=== PATIENT | female | born 1990 | race African-American/Black ===

== ENCOUNTER → 2019-11-23 10:20 | Outpatient (REF) | payer MEDICAID, SELFPAY ==
--- NOTE | 2019-11-23 10:48 | ECG_ITS ---
Test Reason : OTHER CHEST PAIN Blood Pressure : / mmHG Vent. Rate : 072 BPM Atrial Rate : 072 BPM P-R Int : 154 ms QRS Dur : 092 ms QT Int : 410 ms P-R-T Axes : 026 033 037 degrees QTc Int : 448 ms Normal sinus rhythm with sinus arrhythmia Normal ECG No previous ECGs available Referred By: Nenita Trejo Electronically Signed By:SHIMON JACKSON
== END ==
LOC: HO.CARD 10:20
PROVIDERS: PCP Internal Medicine; Visit Provider Internal Medicine
DX: R07.89 Other chest pain (principal)
CPT/HCPCS: 93005; 93010

== ENCOUNTER 2019-12-13 09:26 | Outpatient (REF) | payer MEDICAID, SELFPAY ==
--- NOTE | 2019-12-13 09:31 | FL_ITS ---
EXAMINATION: BARIUM SWALLOW CLINICAL INFORMATION: Dysphagia. COMPARISON: None TECHNIQUE: Routine barium swallow was performed in upright view with thick barium and barium-coated turkey. Patient was placed prone lying and thin barium was administered orally. FINDINGS: Following oral administration of thick barium and barium-coated turkey, there is normal propagation of bolus from the oral cavity through the pharynx, esophagus into stomach without any evidence of obstruction, narrowing or stricture. No intraluminal filling defect or narrowing seen. On placing patient prone lying and oral administration of thin barium, there is normal distention of the entire esophagus without filling defect or extrinsic compression. There is a large gastroesophageal reflux without hiatal hernia. IMPRESSION: Large gastroesophageal reflux without hiatal hernia. Fluoroscopy time: 1.6 minutes. Dose area product: 147 mGy
== END 2019-12-13 09:27 | disposition home or self-care (01) ==
LOC: HO.XRAY 09:26
PROVIDERS: PCP Internal Medicine; Visit Provider Internal Medicine
DX: R13.10 Dysphagia, unspecified (principal)
CPT/HCPCS: 74220

== ENCOUNTER 2020-01-11 08:53 | Day surgery (SDC) | payer MEDICAID, SELFPAY ==
--- NOTE | 2020-01-10 10:48 | HO.ANESPROP2 ---
HPI - Anesthesia Eval Consult details Narrative: 29yo F for Colonoscopy PMFSH Past Medical History Medical History Headache Iron deficiency anemia Vitamin D deficiency Family History Family History (Updated 12/21/19 @ 14:20 by Edwige Howard) Maternal Grandmother Throat cancer Mother Colon cancer Maternal Aunt Diabetes Social History Social History Alcohol intake: never Smoking Status: Never smoker Use of substances other than those prescribed or required for medical reasons: No Advance Directives: No Advance Directives Information Provided: No Meds Allergies Allergy/AdvReac Type Severity Reaction Status Date / Time No Known Allergies Allergy Verified 12/21/19 14:38 Home Medications Medication Instructions Recorded Confirmed Type ascorbic acid (vitamin C) [Vitamin 500 mg PO BID 12/21/19 01/08/20 History C] docusate sodium 50 mg PO BID 12/21/19 12/21/19 History ergocalciferol (vitamin D2) 25,000 unit PO DAILY 12/21/19 12/21/19 History ferrous sulfate 325 mg PO DAILY 12/21/19 01/08/20 History Exam Exam Date and Time: January 10, 2020 1048 Pertinent Lab Results Pertinent Lab Results: Laboratory Tests 12/21/19 12/21/19 14:47 14:47 WBC 7.1 Hgb 10.7 L Hct 34.7 L Plt Count 286 Sodium 136 Potassium 3.8 Chloride 102 Carbon Dioxide 24 BUN 6 L Creatinine 0.72 Assessment and Plan Assessment Anesthesia Assessment: Chart Reviewed
[2020-01-11 09:05] VITALS: BP 137/76; PULSE 98; RESP 16; TEMP 36.1; O2SAT 100
[2020-01-11 09:08] VITALS: BMI 32.3
--- NOTE | 2020-01-11 09:26 | PC.NURSE ---
ehs manager used. urine sent to lab
[2020-01-11 09:32] LABS: UPreg QC Valid YES; Urine Pregnancy NEGATIVE (NEGATIVE)
[2020-01-11] MEDS: Lactated Ringers 1,000 ML 100 ML IVCONT (09:34)
--- NOTE | 2020-01-11 09:44 | MHC.SHP ---
Pre-Procedural Eval Section B Chief Complaint: Screening Details of Present Illness: Colon cancer Screening--Mother dx colon cancer @ age 25 @ 30 Relevant Family History (Specify if Yes): Yes Relevant Social History: None Present Medications: see Short Stay Collaborative assessment Medical History: Significant History (Iron deficiency anemia, Obesity(32.3)) History of Previous Operations: No relevant previous surgery Allergies: Allergies Allergy/AdvReac Type Severity Reaction Status Date / Time No Known Allergies Allergy Verified 12/21/19 14:38 Review of Systems Sugical H&P ROS: Negative: Constitution, Cardiovascular, Respiratory and Gastrointestinal (denies dysphagia, etc .) Exam Surgical H&P Exam: Normal: HEENT, Normal: Heart, Normal: Lungs and Normal: Extremities and Significant Findings: Abdomen (central obesity) Plan Diagnosis/Plan: Unchanged Patient has been examined and remains a candidate for the planned procedure-yes
--- NOTE | 2020-01-11 10:22 | PM.PROC ---
Brief Operative Note Date of procedure: 01/11/20 Pre-op diagnosis: COLON CANCER SCREENING(MOTHER DX W/ CC AGE 25) Post-op diagnosis: other Procedure: NORMAL EXAM Anesthesia: MAC (MD SINGH) Surgeon: Simona Alexander Estimated blood loss (mL): 0 Pathology: none sent Condition: stable Disposition: PACU
[2020-01-11 10:23] VITALS: BP 92/54; PULSE 72; RESP 18; TEMP 36.1; O2SAT 97
[2020-01-11 10:38] VITALS: BP 104/72; PULSE 68; RESP 18; O2SAT 100
--- NOTE | 2020-01-11 11:08 | HO.POSTANES ---
Post Anesthesia Evaluation Post Anesthesia Evaluation Vital Signs: Vital Signs Temp Pulse Resp BP Pulse Ox 01/11/20 10:38 97 F 68 18 104/72 100 01/11/20 10:23 97 F 72 18 92/54 L 97 01/11/20 09:05 97.0 F 98 16 137/76 100 Anesthesia: Monitored Mental Status: Awake Pain Control: Satisfactory Nausea/Vomiting: None Hydration: Adequate Anesthesia-Related Issues: No Anes. Related Issues
--- NOTE | 2020-01-11 12:21 | OP_ITS ---
SURGEON: Simona Alexander MD PREOPERATIVE DIAGNOSIS: Colon Cancer Screening:Mother Dx Colon Cancer-age 25; @age 30 POSTOPERATIVE DIAGNOSIS: Normal exam. PROCEDURE PERFORMED: Colonoscopy. ESTIMATED BLOOD LOSS: No blood loss. COMPLICATIONS: No complications. ANESTHESIA: Monitored ANESTHESIOLOGIST: Zaid Maki MD ASSISTANTS: No cafe assistant. SPECIMENS: No specimens removed. CONDITION: Postop, stable. FINDINGS: Digital rectal exam revealed sphincter tone to be adequate. Video colonoscope was introduced without difficulty. It was navigated into the rectosigmoid and sigmoid. There was mild redundancy in this region. Scope slowly moved through descending, transverse colon to the hepatic flexure. There was minor looping in this region. Gentle extrinsic abdominal pressure facilitated movement through ascending colon, down into the cecum. Appendiceal orifice was seen. Ileocecal valve was well seen. No mucosal abnormalities were appreciated. Prep was excellent. Slow withdrawal of the scope, good rotational views. No lesions were seen. Anorectal verge was clear. CURRENT RECOMMENDATIONS: Repeat asymptomatic screening in a patient with a high-risk family history continues to be 5 years. GRAFT OR IMPLANTS: No grafts or implants. Simona Alexander MD MEN/MODL / [id number] MTDD
== END 2020-01-11 11:09 | disposition home or self-care (01) ==
PROVIDERS: PCP Internal Medicine; Visit Provider Internal Medicine Gastroenterology
PROC: 0DJD8ZZ Inspection of Lower Intestinal Tract, Via Natural or Artificial Opening Endoscopic (ICD-10-PCS; CPT 45378; principal; 2020-01-11 10:30)
DX: Z12.11 Encounter for screening for malignant neoplasm of colon (principal); D50.9 Iron deficiency anemia, unspecified; E55.9 Vitamin D deficiency, unspecified; R51.9 Headache, unspecified; Z79.899 Other long term (current) drug therapy
CPT/HCPCS: 45378; 81025

== ENCOUNTER → 2020-02-08 08:32 | Outpatient (BNVA) | payer MEDICAID, SELFPAY | PROVIDERS: PCP Internal Medicine; Visit Provider Nurse Practitioner | DX: Z76.89 Persons encountering health services in other specified circumstances (principal) ==

== ENCOUNTER 2020-03-12 12:02 | Outpatient (REF) | payer MEDICAID, SELFPAY | END 2020-03-12 12:03 | disposition home or self-care (01) | LOC: HO.LAB 12:02 | PROVIDERS: Visit Provider Internal Medicine | DX: Z20.822 Contact with and (suspected) exposure to COVID-19 (principal) | CPT/HCPCS: 36415; C9803; U0003 ==

== ENCOUNTER 2020-04-10 15:22 | Outpatient (REF) | payer MEDICAID, SELFPAY | END 2020-04-10 15:23 | disposition home or self-care (01) | LOC: HO.LAB 15:22 | PROVIDERS: Visit Provider Internal Medicine | DX: Z20.822 Contact with and (suspected) exposure to COVID-19 (principal) | CPT/HCPCS: 36415; C9803; U0003; U0005 ==

== ENCOUNTER 2020-10-30 12:50 | Outpatient (REF) | payer MEDICAID, SELFPAY | END 2020-10-30 12:51 | disposition home or self-care (01) | LOC: HO.MDS 12:50 | PROVIDERS: Visit Provider Internal Medicine Medical Oncology | DX: D50.9 Iron deficiency anemia, unspecified (principal) | CPT/HCPCS: 96365; J2916 ==

== ENCOUNTER 2020-11-06 12:10 | Outpatient (REF) | payer MEDICAID, SELFPAY | END 2020-11-06 12:11 | disposition home or self-care (01) | LOC: HO.MDS 12:10 | PROVIDERS: Visit Provider Internal Medicine Medical Oncology | DX: D50.9 Iron deficiency anemia, unspecified (principal) | CPT/HCPCS: 96365; J2916 ==

== ENCOUNTER 2020-11-28 11:04 | Outpatient (REF) | payer MEDICAID, SELFPAY | END 2020-11-28 11:05 | disposition home or self-care (01) | LOC: HO.MDS 11:04 | PROVIDERS: PCP Internal Medicine; Visit Provider Internal Medicine Medical Oncology | DX: D50.9 Iron deficiency anemia, unspecified (principal) | CPT/HCPCS: 96365; J2916 ==

== ENCOUNTER 2020-12-04 11:06 | Outpatient (REF) | payer MEDICAID, SELFPAY | END 2020-12-04 11:07 | disposition home or self-care (01) | LOC: HO.MDS 11:06 | PROVIDERS: PCP Internal Medicine; Visit Provider Internal Medicine Medical Oncology | DX: D50.9 Iron deficiency anemia, unspecified (principal) | CPT/HCPCS: 96365; J2916 ==

== ENCOUNTER 2020-12-04 12:57 | Outpatient (REF) | payer MEDICAID, SELFPAY | END 2020-12-04 12:58 | disposition home or self-care (01) | LOC: HO.LAB 12:57 | PROVIDERS: PCP Internal Medicine; Visit Provider Internal Medicine | DX: Z20.822 Contact with and (suspected) exposure to COVID-19 (principal) | CPT/HCPCS: C9803; U0003; U0005 ==

== ENCOUNTER 2023-05-04 13:34 | Outpatient (REF) | payer MEDICAID, SELFPAY ==
[2023-05-06 15:19] LABS: C. trachomatis RNA TMA NOT DETECTED (NOT DETECTED); Candida glabrata RNA NOT DETECTED (NOT DETECTED); Candida species RNA NOT DETECTED (NOT DETECTED); N. gonorrhoeae RNA TMA NOT DETECTED (NOT DETECTED); Trichomonas vaginalis RNA NOT DETECTED (NOT DETECTED)
[2023-05-07 06:33] LABS: HPV mRNA E6/E7 rflx Not Detected (Not Detected)
== END 2023-05-04 13:35 | disposition home or self-care (01) ==
LOC: HO.HHCLNP 13:34
PROVIDERS: Visit Provider Family Medicine
DX: Z01.419 Encounter for gynecological examination (general) (routine) without abnormal findings (principal); N93.9 Abnormal uterine and vaginal bleeding, unspecified; N84.0 Polyp of corpus uteri
CPT/HCPCS: 36415; 81513; 87481; 87491; 87591; 87624; 87661; 88142

== ENCOUNTER 2023-05-07 10:46 | Outpatient (REF) | payer MEDICAID, SELFPAY ==
[2023-05-07 11:41] LABS: MANUAL DIFF FLAG NO
[2023-05-07 11:48] LABS: Basophils Percent Auto 0.6 % (0-2); Eosinophils Absolute Auto 0.1 X10*3/uL (0.0-0.4); Hematocrit 34.9 % (37.0-47.0); Hemoglobin 10.7 g/dl (12.0-16.0); Imm Gran Abs Auto 0.01 X10*3/uL (0.00-0.03); Imm Gran Pct Auto 0.2 % (0.0-0.4); Lymphocytes Absolute Auto 2.5 X10*3/uL (1.2-4.9); Lymphocytes Percent Auto 52.4 % (20-40); Mean Corpuscular HGB Conc 30.7 g/dl (31.0-35.0); Mean Corpuscular Hemoglobin 23.9 pg (27.0-33.0); Mean Corpuscular Volume 78.1 fL (80.0-98.0); Monocytes Absolute Auto 0.3 X10*3/uL (0.1-1.2); Monocytes Percent Auto 6.4 % (2-11); Neutrophils Absolute Auto 1.9 x10*3/uL (2.0-8.3); Neutrophils Percent Auto 39.4 % (45-73); Platelet Count 288 X10*3/uL (160-400); Red Blood Count 4.47 X10*6/uL (4.20-5.50); Red Cell Distribution Width 17.2 % (11.0-16.0); White Blood Count 4.8 X10*3/uL (4.8-10.8)
[2023-05-07 12:04] LABS: Estimated Average Glucose 114 mg/dL; Hemoglobin A1c % 5.6 % (<6.0)
[2023-05-07 14:06] LABS: Alanine Aminotransferase 21 U/L (0-31); Albumin Level 4.3 g/dL (3.5-5.0); Alkaline Phosphatase 75 U/L (39-117); Anion Gap 12 (12-20); Aspartate Amino Transferase 22 U/L (5-31); Bilirubin Total 0.2 mg/dL (0.0-1.0); Blood Urea Nitrogen 8 mg/dL (9-16); Calcium 9.4 mg/dL (8.4-10.2); Carbon Dioxide 26 mmol/L (22-29); Chloride 106 mmol/L (96-108); Cholesterol 204 mg/dL (<200); Estimated Glomerular Filt Rate > 60; Glucose Random 90 mg/dL (60-115); HDL Cholesterol 53 mg/dL (>40); Iron 40 mcg/dL (30-160); LDL Cholesterol Calculated 133 mg/dL (<100); Percent Iron Saturation 11 % (15-50); Potassium 3.7 mmol/L (3.3-5.1); Sodium 140 mmol/L (135-145); Total Iron Binding Capacity 358 mcg/dL (228-428); Total Protein 7.9 g/dL (6.5-8.0); Triglycerides 93 mg/dL (<150); Unsaturated Iron Binding 318 ug/dL
[2023-05-07 14:19] LABS: Ferritin 7 ng/mL (10-122); Vitamin D 25-OH Total 16.1 ng/mL (>30)
[2023-05-07 14:36] LABS: Vitamin B12 430 pg/mL (200-900)
[2023-05-07 15:21] LABS: Reflex LDLD? No
[2023-05-07 17:08] LABS: CT PCR NOT DETECTED (Not Detect.); NG PCR NOT DETECTED (Not Detect.)
[2023-05-08 04:00] LABS: Syphilis Screen Nonreactive (Nonreactive)
[2023-05-08 04:26] LABS: Hepatitis A Antibody IgG REACTIVE (Nonreactive); ~Hepatitis A Antibody IgG 10.59 S/CO (0.00-0.99)
[2023-05-08 04:27] LABS: HBS Num1 0.39 mIU/mL (0-7.99); HBc Num1 0.08 S/CO (0.00-0.79); HBsAGNum1 0.46 S/CO (0.00-0.99); HIV AB/AG Nonreactive (Nonreactive); HIV Num 1 0.07 S/CO (0.00-0.99); Hepatitis B Core Antibody Nonreactive (Nonreactive); Hepatitis B Surface Antigen Negative (Negative); ~HepC Num1 0.08 S/CO (0.00-0.79); ~Hepatitis B Surface Antibody NONREACTIVE (Nonreactive); ~Hepatitis C Antibody Nonreactive (Nonreactive)
== END 2023-05-07 10:47 | disposition home or self-care (01) ==
LOC: HO.HHCL 10:46
PROVIDERS: Visit Provider Family Medicine
DX: Z00.00 Encounter for general adult medical examination without abnormal findings (principal); D64.9 Anemia, unspecified; N93.9 Abnormal uterine and vaginal bleeding, unspecified; E66.09 Other obesity due to excess calories; E61.1 Iron deficiency; Z68.32 Body mass index [BMI] 32.0-32.9, adult
CPT/HCPCS: 0353U; 36415; 80053; 80061; 82306; 82607; 82728; 82746; 83036; 83540; 84443; 85025; 86704; 86706; 86708; 86780; 86803; 87340; 87389

== ENCOUNTER 2024-01-25 12:41 | Outpatient (REF) | payer MEDICAID, SELFPAY ==
[2024-01-25 13:46] LABS: MANUAL DIFF FLAG NO
[2024-01-25 14:05] LABS: Basophils Percent Auto 0.6 % (0-2); Eosinophils Absolute Auto 0.1 X10*3/uL (0.0-0.4); Eosinophils Percent Auto 1.1 % (0-4); Hematocrit 32.3 % (37.0-47.0); Imm Gran Abs Auto 0.01 X10*3/uL (0.00-0.03); Imm Gran Pct Auto 0.2 % (0.0-0.4); Lymphocytes Absolute Auto 1.9 X10*3/uL (1.2-4.9); Mean Corpuscular Hemoglobin 23.4 pg (27.0-33.0); Mean Corpuscular Volume 75.6 fL (80.0-98.0); Mean Platelet Volume 10.6 fL (9.4-12.3); Monocytes Absolute Auto 0.3 X10*3/uL (0.1-1.2); Monocytes Percent Auto 5.9 % (2-11); Neutrophils Absolute Auto 2.4 x10*3/uL (2.0-8.3); Neutrophils Percent Auto 51.2 % (45-73); Platelet Count 292 X10*3/uL (160-400); Red Blood Count 4.27 X10*6/uL (4.20-5.50); Red Cell Distribution Width 18.4 % (11.0-16.0); White Blood Count 4.7 X10*3/uL (4.8-10.8)
[2024-01-25 15:08] LABS: Folate 13.7 ng/mL (> or = 4.0); Vitamin B12 546 pg/mL (200-900)
[2024-01-25 15:11] LABS: Iron 40 mcg/dL (30-160); Percent Iron Saturation 11 % (15-50); Total Iron Binding Capacity 361 mcg/dL (228-428); Unsaturated Iron Binding 321 ug/dL
[2024-01-25 15:33] LABS: Ferritin 7 ng/mL (10-122); Vitamin D 25-OH Total 13.6 ng/mL (>30)
== END 2024-01-25 12:42 | disposition home or self-care (01) ==
LOC: HO.HHCL 12:41
PROVIDERS: Visit Provider Family Medicine
DX: E55.9 Vitamin D deficiency, unspecified (principal); D50.9 Iron deficiency anemia, unspecified
CPT/HCPCS: 36415; 82306; 82607; 82728; 82746; 83540; 85025

== ENCOUNTER 2024-08-07 13:51 | Outpatient (REF) | payer MEDICAID, SELFPAY ==
--- OUTSIDE RECORDS SUMMARY | 2024-08-07 15:30 | XMS_ITS | Encounter Summary ---
Author Organization [employer] Address [address] 7 [place] [address] Care Team Providers Care Department Of Sociology Chair Name Role Phone Alise Tello MD Primary Care Provider [phone] Encounter Details Date Type Department Care Team (Late st Contact Info) Description 07/28/2023 Orders Only [facility] MEDICINE [address], [place] [phone] Alise Tello MD [address] [place], [place] [phone] Vitamin D deficiency (Primary Dx); Iron deficiency anemia, unspecified iron deficiency anemia type Social History Tobacco Use Types Packs/Day Years Used Date Smoking Tobacco: Never Smokeless Tobacco: Never Depression Answer Date Recorded Patient Health Questionnaire-9 Score 0 05/04/2023 Patient Health Questionnaire-9 Score 0 05/04/2023 Last PHQ-9: Questionnaire Data Not on file 0 05/04/2023 Housing Stability Answer Date Recorded What is your housing situation today? I have meme murphy 12/21/[address] you li ve. Do you have problems with any of the following? None of the above 12/21/2022 Food Insecurity Answer Date Recorded Within the past 12 months, y ou worried that your food would run out before you got money to buy more: Never True 04/23/2023 Within the past 12 months,th e food you bought just didn't last and you didn't have enough money to get more: Never True 02/2023 Transportation Answer Date Recorded In the past 12 months, has l ack of transportation kept you from medical appts, meetings, work or from getting things needed for daily living? Yes, it has kept me from medical appointments or getting medications. 11/29/2022 Utilities Answer Date Recorded In the past 12 months, has t he electric, gas, oil or water company threatened to shut off services in your home? No 12/21/2022 Depression Answer Date Recorded Patient Health Questionnaire-2 Score 0 05/04/2023 Comments Unknown Sex and Gender Information Value Date Recorded Sex Assigned at Female 12/22/2021 10:34 AM EDT Legal Sex Female 10:34 AM EDT Gender Identity Female 12/22/2021 10:34 AM EDT Sexual Orientation Straight 12/22/2021 10 :34 AM EDT documented as of this encounter Plan of Treatment Upcoming Encounters Date Type Department Care Team (Late st Contact Info) Description 08/14/2024 9:30 AM EDT Clinical Support [facility] DIABETES/NUTRITION [address], [place] [phone] [address]essa [address]hu [address], [place] [phone] documented as of this encounter Procedures Procedure Name Priority Date/Time Associated Diagnosis Comments VITAMIN D,25-OH,TOTAL,IA Routine 01/25/2024 12:45 PM EST Vitamin D deficiency VITAMIN B12/FOLATE, SERUM PANEL Routine 01/25/2024 12:45 PM EST Iron deficiency anemia, unspecified iron deficiency anemia type CBC WITH AUTO DIFFERENTIAL Routine 01/25/2024 12:45 PM EST Iron deficiency anemia, unspecified iron deficiency anemia type IRON AND TOTAL IRON BINDING CAPACITY Routine 01/25/2024 12:45 PM EST Iron deficiency anemia, unspecified iron deficiency anemia type FERRITIN Routine 01/25/2024 12:45 PM EST Iron deficiency anemia, unspecified iron deficiency anemia type documented in this encounter Results * (ABNORMAL) Vitamin D, 25-Hydroxy, Total, Immunoassay (01/25/2024 12:45 PM EST) Vitamin D 25-OH Total 13.6(L) >30 ng/mL [facility] Comment:Health Based Referen ce Values*< 20 ng/mL [id number] ng/mL Insufficient> 30 ng/mL Sufficient*Castillo MONTES. N Engl J Med. 2007;357:266-280Care must be taken in interpreting Vitamin D results fromdifferent laboratories and methodologies. Published datademonstrated that results from patients undergoinghemodialysis may show a negative bias when tested withvarious automated 25-OH vitamin D assays when compared toLC-MS/MS.When testing samples from patients whose predominant form ofVitamin D is Vitamin D2, such as patients receiving VitaminD2 supplementation, results that are subtherapeutic shouldbe confirmed with another method such as LC-MS/MS. Blood Venous blood specimen / Unknown 01/25/2024 12:45 PM EST 01/25/2024 1:41 PM EST Alise Tello MD LAB BLOOD ORDERABLES Final Resul t Performing Organization Address [facility] de Phone Number [facility] [address] [place] [phone] * Vitamin B12/Folate, Serum Panel (01/25/2024 12:45 PM EST) Vitamin B12 546 200 - 900 pg/mL [facility] Comment:NORMAL 200-900 PG/ML INDETERMINATE 160-199 PG/ML DEFICIENT < 160 PG/ML Folate 13.7 > or = 4.0 ng/mL [facility] Comment:Reference Values:> o r = 4.0 ng/mL< 4.0 ng/mL suggests folate deficiency Methotrexate, aminopterin and folinic acid(leucovorin) are chemotherapeutic agents whose molecularstructures are similar to folate; therefore, the Architectfolate assay cannot be used for patients using these drugs. 01/25/2024 12:4 5 PM EST 01/25/2024 1:41 PM EST Alise Tello MD LAB BLOOD ORDERABLES Final Resul t Performing Organization Address [facility] Co de Phone Number [facility] [address] [place] [phone] * (ABNORMAL) Iron And Total Iron Binding Capacity (01/25/2024 12:45 PM EST) [facility] Iron 40 30 - 160 mcg/dL [facility] Total Iron Binding Capacity 361 228 - 428 mcg/dL [facility] Percent Iron Saturation 11(L) 15 - 50 % [facility] Unsaturated Iron Binding 321 ug/dL [facility] Blood Venous blood specimen / Unknown 01/25/2024 12:45 PM EST 01/25/2024 1:41 PM EST Alise Tello MD LAB BLOOD ORDERABLES Final Resul t Performing Organization Address [facility]/ZIP Co de Phone Number [facility] [address] [place] [phone] * (ABNORMAL) Ferritin (01/25/2024 12:45 PM EST) [facility] Ferritin 7(L) 10 - 122 ng/mL [facility] Blood Venous blood specimen / Unknown 01/25/2024 12:45 PM EST 01/25/2024 1:41 PM EST us Alise Tello MD LAB BLOOD ORDERABLES Final Resul t Performing Organization Address City/[facility]/ZIP Co de Phone Number [facility] [address] [place] [phone] * (ABNORMAL) CBC auto differential (01/25/2024 12:45 PM EST) [facility] White Blood Count 4.7(L) 4.8 - 10.8 X10*3/uL [facility] Red Blood Count 4.27 4.20 - 5.50 X10*6/uL [facility] Hemoglobin 10.0(L) 12.0 - 16.0 g/dl [facility] Hematocrit 32.3(L) 37.0 - 47.0 % [facility] Mean Corpuscular Volume 75.6(L) 80.0 - 98.0 fL [facility] Mean Corpuscular Hemoglobin 23.4(L) 27.0 - 33.0 pg [facility] Mean Corpuscular HGB Conc 31.0 31.0 - 35.0 g/dl [facility] Red Cell Distribution Width 18.4(H) 11.0 - 16.0 % [facility] Platelet Count 292 160 - 400 X10*3/uL [facility] Mean Platelet Volume 10.6 9.4 - 12.3 fL [facility] Neutrophils Percent Auto 51.2 45 - 73 % [facility] Imm Gran Pct Auto 0.2 0.0 - 0.4 % [facility] Lymphocytes Percent Auto 41.0(H) 20 - 40 % [facility] Monocytes Percent Auto 5.9 2 - 11 % [facility] Eosinophils Percent Auto 1.1 0 - 4 % [facility] Basophils Percent Auto 0.6 0 - 2 % [facility] NRBC Pct Auto 0.0 0.0 - 0.2 /100WBC [facility] Neutrophils Absolute Auto 2.4 2.0 - 8.3 x10*3/uL [facility] Imm Gran Abs Auto 0.01 0.00 - 0.03 X10*3/uL [facility] Lymphocytes Absolute Auto 1.9 1.2 - 4.9 X10*3/uL [facility] Monocytes Absolute Auto 0.3 0.1 - 1.2 X10*3/uL [facility] Eosinophils Absolute Auto 0.1 0.0 - 0.4 X10*3/uL [facility] Basophils Absolute Auto 0.0 0.0 - 0.2 X10*3/uL [facility] NRBC Abs Auto 0.000 0.0 - 0.012 X10*3/uL [facility] Blood Venous blood specimen / Unknown 01/25/2024 12:45 PM EST 01/25/2024 1:41 PM EST us Alise Tello MD LAB BLOOD ORDERABLES Final Resul t [facility] [address] [place] [phone] documented in this encounter Visit Diagnoses Diagnosis Vitamin D deficiency- Primary Iron deficiency anemia, unspecified iron deficiency anemia type documented in this encounter Additional Health Concerns Assessment Noted Time PHQ-9 Depression Total Score: 0 05/04/19 24 10:09 AM EDT documented as of this encounter Care Teams Department Of Sociology Chair Relationship Specialty Start Date End Date Alise Tello MD [address] [place] [phone] PCP - General Family Medicine 05/04/23 documented as of this encounter
[2024-08-07 16:10] LABS: MANUAL DIFF FLAG NO
[2024-08-07 16:22] LABS: Basophils Percent Auto 0.8 % (0-2); Eosinophils Absolute Auto 0.1 X10*3/uL (0.0-0.4); Hematocrit 35.4 % (37.0-47.0); Hemoglobin 10.8 g/dl (12.0-16.0); Imm Gran Abs Auto 0.01 X10*3/uL (0.00-0.03); Imm Gran Pct Auto 0.2 % (0.0-0.4); Lymphocytes Absolute Auto 2.3 X10*3/uL (1.2-4.9); Lymphocytes Percent Auto 44.2 % (20-40); Mean Corpuscular HGB Conc 30.5 g/dl (31.0-35.0); Mean Corpuscular Hemoglobin 23.6 pg (27.0-33.0); Mean Corpuscular Volume 77.3 fL (80.0-98.0); Mean Platelet Volume 11.3 fL (9.4-12.3); Monocytes Absolute Auto 0.4 X10*3/uL (0.1-1.2); Monocytes Percent Auto 7.4 % (2-11); Neutrophils Absolute Auto 2.4 x10*3/uL (2.0-8.3); Neutrophils Percent Auto 46.4 % (45-73); Platelet Count 287 X10*3/uL (160-400); Red Blood Count 4.58 X10*6/uL (4.20-5.50); Red Cell Distribution Width 18.7 % (11.0-16.0); White Blood Count 5.3 X10*3/uL (4.8-10.8)
[2024-08-07 16:38] LABS: Estimated Average Glucose 114 mg/dL; Hemoglobin A1c % 5.6 % (<6.0)
[2024-08-07 16:58] LABS: Ferritin 8 ng/mL (10-122); Iron 35 mcg/dL (30-160); Percent Iron Saturation 10 % (15-50); TSH reflex Free T4 1.07 uIU/mL (0.32-4.0); Total Iron Binding Capacity 353 mcg/dL (228-428); Unsaturated Iron Binding 318 ug/dL; Vitamin D 25-OH Total 26.7 ng/mL (>30)
[2024-08-10 10:03] LABS: Prolactin Undiluted 9.3 ng/mL
== END 2024-08-07 13:52 | disposition home or self-care (01) ==
LOC: HO.HHCL 13:51
PROVIDERS: Visit Provider Family Medicine
DX: N92.6 Irregular menstruation, unspecified (principal); E55.9 Vitamin D deficiency, unspecified; Z13.1 Encounter for screening for diabetes mellitus; D64.9 Anemia, unspecified; E61.1 Iron deficiency
CPT/HCPCS: 36415; 82306; 82728; 83036; 83540; 84146; 84443; 85025

== ENCOUNTER 2024-12-26 14:25 | Outpatient (REF) | payer MEDICAID, SELFPAY ==
--- OUTSIDE RECORDS SUMMARY | 2024-12-26 13:30 | XMS_ITS | Encounter Summary ---
Author Organization [employer] Address 75 [facility] 7 [place] [address] Care Team Providers Care Call Or Contact Centre Manager Name Role Phone Alise Tello MD Primary Care Provider [phone] Encounter Details Date Type Department Care Team (Late st Contact Info) Description 12/26/2024 1:30 PM EST Office Visit [facility] [address] [place] [address] [phone] Alise Tello MD [address] [place], [place] [phone] Anemia, unspecified type (Primary Dx) Social History Tobacco Use Types Packs/Day Years Used Date Smoking Tobacco: Never Smokeless Tobacco: Never Alcohol Use Standard Drinks/Week Comments Never 0 (1 standard drink = 0.6 oz pur e alcohol) Depression Answer Date Recorded Patient Health Questionnaire-9 Score 3 12/26/2024 Patient Health Questionnaire-9 Score 3 12/26/2024 Last PHQ-9: Questionnaire Data Not on file 1 02/26/2024 Housing Stability Answer Date Recorded What is your housing situation today? I have meme murphy 08/07/[address] you li ve. Do you have problems with any of the following? None of the above 08/07/2024 Food Insecurity Answer Date Recorded Within the past 12 months, y ou worried that your food would run out before you got money to buy more: Never True 08/07/2024 Within the past 12 months,th e food you bought just didn't last and you didn't have enough money to get more: Never True Transportation Answer Date Recorded In the past 12 months, has l ack of transportation kept you from medical appts, meetings, work or from getting things needed for daily living? No 08/07/2024 Utilities Answer Date Recorded In the past 12 months, has t he electric, gas, oil or water company threatened to shut off services in your home? No 08/07/2024 Depression Answer Date Recorded Patient Health Questionnaire-2 Score 2 12/26/2024 Internet Access Answer Date Recorded Internet Access Q1 Yes 08/07/2024 Internet Access Q2 Not on file 08/07/2024 Comments No Sex and Gender Information Value Date Recorded Sex Assigned at Female 12/22/2021 10:34 AM EDT Legal Sex Female 10:34 AM EDT Gender Identity Female 12/22/2021 10:34 AM EDT Sexual Orientation Straight 12/22/2021 10 :34 AM EDT documented as of this encounter Last Filed Vital Signs Vital Sign Reading Time Taken Comments Blood Pressure 136/90 12/26/2024 1:53 PM EST Pulse 92 12/26/2024 1:53 PM EST Temperature 36.8 C (98.2 F) 12/26/2024 1:53 PM EST Respiratory Rate 21 12/26/2024 1:53 PM EST Oxygen Saturation 98% 12/26/2024 1:53 PM EST Inhaled Oxygen Concentration - - Weight 84.4 kg (186 lb 2 oz) 12/26/2024 1:53 PM EST Height 167.6 cm (5' 6 ) 12/26/2024 1:53 PM EST Body Mass Index 30.04 12/26/2024 1:53 PM EST documented in this encounter Functional Status * Over the past 2 weeks, how often have you been bothered by any of the following problems? Question Answer Date of Assessment Author Patient Health Questionnaire -2 Score 2 12/26/2024 1:55 PM EST Mi Guzman MA * Little interest or pleasure in doing things Answer Date of Assessment Author Several days 12/26/2024 1:55 PM EST Sivakumar Guzman MA * Feeling down, depressed, or hopeless Answer Date of Assessment Author Several days 12/26/2024 1:55 PM EST Sivakumar Guzman MA * Trouble falling or staying asleep, or sleeping too much Answer Date of Assessment Author Not at all 12/26/2024 1:55 PM Sivakumar Yousif MA * Feeling tired or having little energy Answer Date of Assessment Author Not at all 12/26/2024 1:55 PM Sivakumar Yousif MA * Poor appetite or overeating Answer Date of Assessment Author Not at all 12/26/2024 1:55 PM Sivakumar Yousif MA * Feeling bad about yourself - or that you are a failure or have let yourself or your family down Answer Date of Assessment Author Not at all 12/26/2024 1:55 PM Sivakumar Yousif MA * Trouble concentrating on things, such as reading the newspaper or watching television Answer Date of Assessment Author Several days 12/26/2024 1:55 PM Sivakumar Yousif MA * Moving or speaking so slowly that other people could have noticed? Or the opposite - being so fidgety or restless that you have been moving around a lot more than usual. Answer Date of Assessment Author Not at all 12/26/2024 1:55 PM Sivakumar Yousif MA * Thoughts that you would be better off or hurting yourself in some way Answer Date of Assessment Author Not at all 12/26/2024 1:55 PM Sivakumar Yousif MA * Patient Health Questionnaire-9 Score Answer Date of Assessment Author 3 12/26/2024 1:55 PM Sivakumar Yousif MA * How difficult have these problems made it for you to do your work, take care of things at home, or get along with other people? Answer Date of Assessment Author Not difficult at all 12/26/2024 1:55 PM Mi Bonds MA * Over the last 2 weeks, how often have you been bothered by any of the following problems? Question Answer Date of Assessment Author Feeling nervous, anxious, or on edge 1 12/26/2024 1:55 PM Mi Yousif MA Not being able to stop or co ntrol worrying 1 12/26/2024 1:55 PM Mi Yousif MA Worrying too much about diff erent things 1 12/26/2024 1:55 PM Mi Yousif MA Trouble relaxing 1 12/26/2024 1:55 PM EST Mi Gomez MA Being so restless that it is hard to sit still 1 12/26/2024 1:55 PM EST Mi Guzman MA Becoming easily annoyed or irritable 2 12/26/2024 1:55 PM EST Mi Guzman MA Feeling afraid as if somethi ng awful might happen 0 12/26/2024 1:55 PM EST Mi Guzman MA KATHLEEN-7 Total Score 7 12/26/2024 1:55 PM EST Mi Guzman MA documented as of this encounter Plan of Treatment Not on file documented as of this encounter Procedures Procedure Name Priority Date/Time Associated Diagnosis Comments VITAMIN B12/FOLATE, SERUM PANEL Routine 12/26/2024 2:34 PM EST Anemia, unspecified type CBC WITH AUTO DIFFERENTIAL Routine 12/26/2024 2:34 PM EST Anemia, unspecified type IRON AND TOTAL IRON BINDING CAPACITY Routine 12/26/2024 2:34 PM EST Anemia, unspecified type RETICULOCYTE COUNT Routine 12/26/2024 2: 34 PM EST Anemia, unspecified type FERRITIN Routine 12/26/2024 2:34 PM EST Anemia, unspecified type documented in this encounter Results * Vitamin B12 (Cobalamin) and Folate Panel, Serum (12/26/2024 2:34 PM EST) Vitamin B12 466 200 - 900 pg/mL [facility] Comment:NORMAL 200-900 PG/ML INDETERMINATE 160-199 PG/ML DEFICIENT < 160 PG/ML Folate 7.2 > or = 4.0 ng/mL [facility] Comment:Reference Values:> o r = 4.0 ng/mL< 4.0 ng/mL suggests folate deficiency Methotrexate, aminopterin and folinic acid(leucovorin) are chemotherapeutic agents whose molecularstructures are similar to folate; therefore, the Architectfolate assay cannot be used for patients using these drugs. Blood 12/26/2024 2:34 PM EST 12/26/2024 3:55 PM EST Alise Tello MD LAB BLOOD ORDERABLES Final Resul t Performing Organization Address [facility] Co de Phone Number [facility] [address] [place] [phone] * Reticulocyte Count (12/26/2024 2:34 PM EST) Reticulocytes Absolute 0.053 0.026 - 0.095 X10*6/uL [facility] Immature Retic Fraction 8.1 3.0 - 15.9 % [facility] Retic HGB Equivalent 32.0 30.0 - 35.0 pg [facility] Reticulocyte Percent 1.2 0.5 - 1.8 % [facility] Blood Venous blood specimen / Unknown 12/26/2024 2:34 PM EST 12/26/2024 3:55 PM EST Alise Tello MD LAB BLOOD ORDERABLES Final Resul t Performing Organization Address [facility] Co de Phone Number [facility] [address] [place] [phone] * Iron And Total Iron Binding Capacity (12/26/2024 2:34 PM EST) Iron 43 30 - 160 mcg/dL [facility] Total Iron Binding Capacity 292 228 - 428 mcg/dL [facility] Percent Iron Saturation 15 15 - 50 % [facility] Unsaturated Iron Binding 249 ug/dL [facility] Blood Venous blood specimen / Unknown 12/26/2024 2:34 PM EST 12/26/2024 3:55 PM EST Alise Tello MD LAB BLOOD ORDERABLES Final Resul t Performing Organization Address City/[facility]/ZIP Co de Phone Number [facility] [address] [place] [phone] [phone] * (ABNORMAL) Ferritin (12/26/2024 2:34 PM EST) Pathologist [facility] Ferritin 9(L) 10 - 122 ng/mL [facility] Blood Venous blood specimen / Unknown 12/26/2024 2:34 PM EST 12/26/2024 3:55 PM EST us Alise Tello MD LAB BLOOD ORDERABLES Final Resul t [facility] [address] [place] [phone] * (ABNORMAL) CBC auto differential (12/26/2024 2:34 PM EST) [facility] White Blood Count 5.1 4.8 - 10.8 X10*3/uL [facility] Red Blood Count 4.54 4.20 - 5.50 X10*6/uL [facility] Hemoglobin 11.3(L) 12.0 - 16.0 g/dl [facility] Hematocrit 35.9(L) 37.0 - 47.0 % [facility] Mean Corpuscular Volume 79.1(L) 80.0 - 98.0 fL [facility] Mean Corpuscular Hemoglobin 24.9(L) 27.0 - 33.0 pg [facility] Mean Corpuscular HGB Conc 31.5 31.0 - 35.0 g/dl [facility] Red Cell Distribution Width 18.5(H) 11.0 - 16.0 % [facility] Platelet Count 250 160 - 400 X10*3/uL [facility] Mean Platelet Volume 11.3 9.4 - 12.3 fL [facility] Neutrophils Percent Auto 43.7(L) 45 - 73 % [facility] Imm Gran Pct Auto 0.2 0.0 - 0.4 % [facility] Lymphocytes Percent Auto 49.2(H) 20 - 40 % [facility] Monocytes Percent Auto 5.7 2 - 11 % [facility] Eosinophils Percent Auto 0.6 0 - 4 % [facility] Basophils Percent Auto 0.6 0 - 2 % [facility] NRBC Pct Auto 0.0 0.0 - 0.2 /100WBC [facility] Neutrophils Absolute Auto 2.2 2.0 - 8.3 x10*3/uL [facility] Imm Gran Abs Auto 0.01 0.00 - 0.03 X10*3/uL [facility] Lymphocytes Absolute Auto 2.5 1.2 - 4.9 X10*3/uL [facility] Monocytes Absolute Auto 0.3 0.1 - 1.2 X10*3/uL [facility] Eosinophils Absolute Auto 0.0 0.0 - 0.4 X10*3/uL [facility] Basophils Absolute Auto 0.0 0.0 - 0.2 X10*3/uL [facility] NRBC Abs Auto 0.000 0.0 - 0.012 X10*3/uL [facility] Blood Venous blood specimen / Unknown 12/26/2024 2:34 PM EST 12/26/2024 3:55 PM EST Alise Tello MD LAB BLOOD ORDERABLES Final Resul t [facility] [address] [place] [phone] documented in this encounter Visit Diagnoses Diagnosis Anemia, unspecified type- Primary documented in this encounter Additional Health Concerns Assessment Noted Time PHQ-9 Depression Total Score: 3 12/27/19 25 1:55 PM EST documented as of this encounter Care Teams Call Or Contact Centre Manager Relationship Specialty Start Date End Date Alise Tello MD [address] [place] [phone] PCP - General Family Medicine 05/04/23 documented as of this encounter
[2024-12-26 16:00] LABS: MANUAL DIFF FLAG NO
[2024-12-26 16:19] LABS: Hematocrit 35.9 % (37.0-47.0); Hemoglobin 11.3 g/dl (12.0-16.0); Imm Gran Abs Auto 0.01 X10*3/uL (0.00-0.03); Imm Gran Pct Auto 0.2 % (0.0-0.4); Lymphocytes Absolute Auto 2.5 X10*3/uL (1.2-4.9); Mean Corpuscular HGB Conc 31.5 g/dl (31.0-35.0); Mean Corpuscular Hemoglobin 24.9 pg (27.0-33.0); Mean Corpuscular Volume 79.1 fL (80.0-98.0); NRBC Abs Auto 0.000 X10*3/uL (0.0-0.012); NRBC Pct Auto 0.0 /100WBC (0.0-0.2); Platelet Count 250 X10*3/uL (160-400); Red Blood Count 4.54 X10*6/uL (4.20-5.50); Reticulocytes Absolute 0.053 X10*6/uL (0.026-0.095); White Blood Count 5.1 X10*3/uL (4.8-10.8)
[2024-12-26 16:39] LABS: Iron 43 mcg/dL (30-160); Percent Iron Saturation 15 % (15-50); Total Iron Binding Capacity 292 mcg/dL (228-428); Unsaturated Iron Binding 249 ug/dL
[2024-12-26 16:58] LABS: Ferritin 9 ng/mL (10-122)
[2024-12-26 17:26] LABS: Folate 7.2 ng/mL (> or = 4.0); Vitamin B12 466 pg/mL (200-900)
--- OUTSIDE RECORDS SUMMARY | 2024-12-26 17:28 | XMS_ITS | Encounter Summary ---
Author Organization [employer] Address 75 [facility] 7 [place] [address] Care Team Providers Care Pneudraulic Systems Mechanic Name Role Phone Alise Tello MD Primary Care Provider [phone] Encounter Details Date Type Department Care Team ([facility] st Contact Info) Description 04/24/2024 Orders Only [facility] MEDICINE [address] [place], [place] [phone] Alise Tello MD [address] [place], [place] [phone] Social History Tobacco Use Types Packs/Day Years Used Date Smoking Tobacco: Never Smokeless Tobacco: Never Depression Answer Date Recorded Patient Health Questionnaire-9 Score 16 01/26/2024 Patient Health Questionnaire-9 Score 16 01/26/2024 Last PHQ-9: Questionnaire Data Not on file 1 03/28/2023 Housing Stability Answer Date Recorded What is your housing situation today? I have meme jeffrey 12/21/[address] you li [...] Answer Date Recorded Patient Health Questionnaire-2 Score 3 01/26/2024 Comments Unknown Sex and Gender Information Value Date Recorded Sex Assigned at Female 12/22/2021 10:34 AM EDT Legal Sex Female 10:34 AM EDT Gender Identity Female 12/22/2021 10:34 AM EDT Sexual Orientation Straight 12/22/2021 10 :34 AM EDT documented as of this encounter Plan of Treatment Not on file documented as of this encounter Visit Diagnoses Not on filedocumented in this encounter Additional Health Concerns Assessment Noted Time PHQ-9 Depression Total Score: 16 024 9:00 AM EST documented as of this encounter Care Teams Pneudraulic Systems Mechanic Relationship Specialty Start Date End Date Alise Tello MD [address] [place] [phone] PCP - General Family Medicine 05/04/23 documented as of this encounter
--- OUTSIDE RECORDS SUMMARY | 2024-12-26 17:28 | XMS_ITS | Encounter Summary ---
Author Organization [employer] Address [address] [place] [address] [place] [address] Care Team Providers Care Moderate Needs Teacher Name Role Phone Alise Tello MD Primary Care Provider [phone] Reason for Visit * Reason Onset Date Comments Appointment Request 11/06/2024 Encounter Details Date Type Department Care Team ([facility] st Contact Info) Description 11/06/2024 Telephone [facility] MEDICINE [address] [place], [place] [phone] Alise Tello MD [address] [place] [address] Appointment Request Social History Tobacco Use Types Packs/Day Years [...] Recorded Patient Health Questionnaire-2 Score 3 01/26/2024 Internet Access Answer Date Recorded Internet Access Q1 Yes 08/07/2024 Internet Access Q2 Not on file 08/07/2024 Comments Unknown Sex and Gender Information Value Date Recorded Sex Assigned at Female 12/22/2021 10:34 AM EDT Legal Sex Female 10:34 AM EDT Gender Identity Female 12/22/2021 10:34 AM EDT Sexual Orientation Straight 12/22/2021 10 :34 AM EDT documented as of this encounter Miscellaneous Notes * Telephone Encounter - Nicole Cohen - 11/06/2024 10:38 AM EDT Tc from pt requesting to reschedule appt from 10/27 Contact pt at [phone] 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
--- OUTSIDE RECORDS SUMMARY | 2024-12-26 17:28 | XMS_ITS | Encounter Summary ---
Author Organization [employer] Address [address] [place] [address] 7 [place] [address] Care Team Providers Care Physical Chemistry Teacher Name Role Phone Alise Tello MD Primary Care Provider [phone] Reason for Visit * Reason Onset Date Comments Med Refill 12/09/2023 Encounter Details Date Type Department Care Team ([facility] st Contact Info) Description 12/09/2023 Refill [facility] MEDICINE [address] [place], [place] [phone] Alise Tello MD [address] [place] [address] Social History Tobacco Use Types Packs/Day Years [...] Time PHQ-9 Depression Total Score: 0 05/04/19 10:09 AM EDT documented as of this encounter Care Teams Physical Chemistry Teacher Relationship Specialty Start Date End Date Alise Tello MD [address] [place] [phone] PCP - General Family Medicine 05/04/23 documented as of this encounter
--- OUTSIDE RECORDS SUMMARY | 2024-12-26 17:28 | XMS_ITS | Encounter Summary ---
Author Organization [employer] Address 75 [facility] 7 [place] [address] Care Team Providers Care Art Glass Designer Name Role Phone Alise Tello MD Primary Care Provider [phone] Encounter Details Date Type Department Care Team (Late st Contact Info) Description 01/26/2024 Orders Only [facility] MEDICINE [address] [place], [place] [phone] Alise Tello MD [address] [place], [place] [phone] Iron deficiency (Primary Dx); Vitamin D deficiency; Anemia, unspecified type Social History Tobacco Use Types Packs/Day [...] AM EDT documented as of this encounter Functional Status * Over the past 2 weeks, how often have you been bothered by any of the following problems? Question Answer Date of Assessment Author Patient Health Questionnaire-2 Score 3 05/2023 9:00 AM EST Gurmeet Hdezsa * Little interest or pleasure in doing things Answer Date of Assessment Author Several days 01/26/2024 9:00 AM Malachi Butts irsa * Feeling down, depressed, or hopeless Answer Date of Assessment Author More than half the days 01/26/2024 9:00 AM EST R Gurmeet millersa * Trouble falling or staying asleep, or sleeping too much Answer Date of Assessment Author Nearly every day 01/26/2024 9:00 AM EST Lemuel Rita * Feeling tired or having little energy Answer Date of Assessment Author Nearly every day 01/26/2024 9:00 AM EST Gurmeet Hdezsa * Poor appetite or overeating Answer Date of Assessment Author Nearly every day 01/26/2024 9:00 AM EST Lemuel Rita * Feeling bad about yourself - or that you are a failure or have let yourself or your family down Answer Date of Assessment Author Nearly every day 01/26/2024 9:00 AM EST Lemuel Rita * Trouble concentrating on things, such as reading the newspaper or watching television Answer Date of Assessment Author Several days 01/26/2024 9:00 AM EST Lemuel T irsa * Moving or speaking so slowly that other people could have noticed? Or the opposite - being so fidgety or restless that you have been moving around a lot more than usual. Answer Date of Assessment Author Not at all 01/26/2024 9:00 AM Malachi Butts irsa * Thoughts that you would be better off or hurting yourself in some way Answer Date of Assessment Author Not at all 01/26/2024 9:00 AM Malachi Butts irsa * Patient Health Questionnaire-9 Score Answer Date of Assessment Author 16 01/26/2024 9:00 AM Malachi Butts irsa * Over the last 2 weeks, how often have you been bothered by any of the following problems? Question Answer Date of Assessment Author Feeling nervous, anxious, or on edge 1 05/2023 9:01 AM Rita Butts Not being able to stop or co ntrol worrying 1 01/26/2024 9:01 AM Rita Butts Worrying too much about different things 1 01/26/2024 9:01 AM Rtia Butts Trouble relaxing 0 01/26/2024 9:01 AM Rita Covarrubias Being so restless that it is hard to sit still 0 01/26/2024 9:01 AM Rita Butts Becoming easily annoyed or irritable 1 05/2023 9:01 AM Rita Butts Feeling afraid as if somethi ng awful might happen 2 01/26/2024 9:01 AM Rita Butts KATHLEEN-7 Total Score 6 01/26/2024 9:01 AM Rita Butts documented as of this encounter Plan of Treatment Scheduled Orders Name Type Priority Associated Diagnoses Orde r Schedule CBC auto differential Lab Routine Anemia, unspecified type Expected: 04/25/2024, Expires: 01/25/2025 Iron And Total Iron Binding Capacity Lab Routine Iron deficiency Anemia, unspecified type Expected: 04/25/2024, Expires: 01/25/2025 documented as of this encounter Procedures Procedure Name Priority Date/Time Associated Diagnosis Comments VITAMIN D,25-OH,TOTAL,IA Routine 08/07/2024 1:53 PM EDT Vitamin D deficiency FERRITIN Routine 08/07/2024 1:53 PM EDT Iron deficiency Anemia, unspecified type documented in this encounter Results * (ABNORMAL) Vitamin D, 25-Hydroxy, Total, Immunoassay (08/07/2024 1:53 PM EDT) Vitamin D 25-OH Total 26.7(L) >30 ng/mL [facility] Comment: Health Based Reference Values*< 20 ng/mL [id number] ng/mL Insufficient> 30 ng/mL Sufficient*Castillo MONTES. N Engl J Med. 2007;357:266-280There is no well-established upper level of normal vitamin Dlevels. Some laboratories use 50 ng/mL as an upper limit ofnormal. However, toxicity is patient-dependent and may occurat any level. Careful correlation with the patient'spresentation is necessary and, if there is concern forvitamin D toxicity, treatment should be consideredirrespective of the serum level.Care must be taken in interpreting Vitamin D [...] LC-MS/MS. Blood Venous blood specimen / Unknown 08/07/2024 1:53 PM EDT 08/07/2024 4:02 PM EDT Alise Tello MD LAB BLOOD ORDERABLES Final Resul t [facility] [address] [place] [phone] * (ABNORMAL) Ferritin (08/07/2024 1:53 PM EDT) Ferritin 8(L) 10 - 122 ng/mL [facility] Blood Venous blood specimen / Unknown 08/07/2024 1:53 PM EDT 08/07/2024 4:02 PM EDT Alise Tello MD LAB BLOOD ORDERABLES Final Resul t [facility] [address] [place] [phone] documented in this encounter Visit Diagnoses Diagnosis Iron deficiency- Primary Disorders of iron metabolism Vitamin D deficiency Anemia, unspecified type documented in this encounter Additional Health Concerns Assessment Noted Time PHQ-9 Depression Total Score: 16 024 9:00 AM EST documented as of this encounter Care Teams Art Glass Designer Relationship Specialty Start Date End Date Alise Tello MD [address] [place] [address] PCP - General Family Medicine 05/04/23 documented as of this encounter
--- OUTSIDE RECORDS SUMMARY | 2024-12-26 17:28 | XMS_ITS | Encounter Summary ---
Author Organization [employer] Address 75 [facility] 7 [place] [address] Care Team Providers Care Vp Analysis Name Role Phone Alise Tello MD Primary Care Provider [phone] Encounter Details Date Type Department Care Team ([facility] st Contact Info) Description 10/03/2024 Orders Only [facility] MEDICINE [address] [place], [place] [phone] Alise Tello MD [address] [place], [place] [phone] Social History Tobacco Use Types Packs/Day Years Used Date Smoking Tobacco: Never Smokeless Tobacco: Never Depression Answer Date Recorded Patient Health Questionnaire-9 Score 16 01/26/2024 Patient Health Questionnaire-9 Score 16 01/26/2024 Last PHQ-9: Questionnaire Data Not on file 1 03/28/2023 Housing Stability Answer Date Recorded What is your housing situation today? I have memealysha murphy 08/07/[address] you [...] documented as of this encounter Care Teams Vp Analysis Relationship Specialty Start Date End Date Alise Tello MD [address] [place] [phone] PCP - General Family Medicine 05/04/23 documented as of this encounter
--- OUTSIDE RECORDS SUMMARY | 2024-12-26 17:28 | XMS_ITS | Encounter Summary ---
Author Organization [employer] Address [address] [facility] 7 [place] [address] Care Team Providers Care Security Management Specialist Name Role Phone Alise Tello MD Primary Care Provider [phone] Encounter Details Date Type Department Care Team (Latest Contact Info) Description 12/26/2024 Travel Social History Tobacco Use Types Packs/Day Years [...] Questionnaire -2 Score 2 12/26/2024 1:55 PM Mi Yousif MA * Little interest or pleasure in doing things Answer Date of Assessment Author Several days 12/26/2024 1:55 PM Sivakumar Yousif MA * Feeling down, depressed, or hopeless Answer Date of Assessment Author Several days 12/26/2024 1:55 PM Sivakumar Yousif MA * Trouble falling or staying asleep, [...] Not difficult at all 12/26/2024 1:55 PM EST Mi Ohara MA * Over the last 2 weeks, [...] diff erent things 1 12/26/2024 1:55 PM EST Mi Guzman MA Trouble relaxing 1 12/26/2024 1:55 PM EST Mi Gomez MA Being so restless that it is hard to sit still 1 12/26/2024 1:55 PM EST Mi Guzman MA Becoming easily annoyed or irritable 2 12/26/2024 1:55 PM Mi Yousif MA Feeling afraid as if somethi ng awful might happen 0 12/26/2024 1:55 PM EST Mi Guzman MA KATHLEEN-7 Total Score 7 12/26/2024 1:55 PM Mi Yousif MA documented as of this encounter Plan of Treatment Not on file documented as of this encounter Visit Diagnoses Not on filedocumented in this encounter Additional Health Concerns Assessment Noted Time PHQ-9 Depression Total Score: 3 12/27/19 25 1:55 PM EST documented as of this encounter Care Teams Security Management Specialist Relationship Specialty Start Date End Date Alise Tello MD [address] [place] [phone] PCP - General Family Medicine 05/04/23 documented as of this encounter
--- OUTSIDE RECORDS SUMMARY | 2024-12-26 17:28 | XMS_ITS | Clinical Summary ---
Author Organization [employer] Address [address] [place] [address] 7[address] [place] [address] Care Team Providers Care Powder Carrier Name Role Phone Alise Tello MD Primary Care Provider [phone] Allergies No known active allergies Medications * This document contains information received from the source organization and may not represent a complete record from that organization. fluticasone (Flonase) 50 MCG/ACT nasal spray Administer 1-2 sprays into each nostril in the morning. Shake gently. Before first use, prime pump. After use, clean tip and replace cap. 16 g 2 4 Active escitalopram (Lexapro) 20 MG tabletIndicatio ns:Anxiety TAKE 1 TABLET BY MOUTH AT BEDTIME 90 tablet 3 5 Active hydrOXYzine HCl (Atarax) 25 MG tabletIndicatio ns:Anxiety Take 1 tablet (25 mg) by mouth every 12 (twelve) hours if needed for anxiety. 30 tablet 2 5 Active cholecalciferol (Vitamin D-3) 25 MCG (1000 UT) tablet Take 1 tablet (25 mcg) by mouth Once per day. 90 tablet 3 5 Active benzoyl peroxide 5 % gel Apply topically 2 times daily. 60 g 2 5 08/08/19 26 Active ferrous gluconate (Fergon) 324 (38 Fe) MG tablet Take 1 tablet by mouth every other day 45 tablet 3 5 Active Blood Pressure Monitor misc Check BP daily 1 each 5 Active Tirzepatide 2.5 MG/0.5ML solution auto-injector Inject 2.5 mg under the skin 1 (one) time per week. 2 mL 11 5 Active Tirzepatide-Chepe ght Management 5 MG/0.5ML solution Inject 5 mg under the skin 1 (one) time per week. 2 mL 11 5 Active Tirzepatide-Chepe ght Management (Zepbound) 7.5 MG/0.5ML solution auto-injector Inject 0.5 mL (7.5 mg) under the skin 1 (one) time per week. 2 mL 2 5 Active Active Problems Problem Noted Date Diagnosed Date Irregular menstruation 08/19/2024 Assessment & Plan (08/19/2024 5:57 AM EDT): - Possible PCOS - Will check TSH and prolactin Iron deficiency anemia 03/19/2024 Assessment & Plan (08/09/2024 12:44 PM EDT): - continue oral iron supplementation - no AUB, per pt - repeat lab in April 2024; if it does not improve, will further evaluate for its cause Assessment & Plan (03/19/2024 7:01 AM EST): - continue oral iron supplementation - no AUB, per pt - repeat lab in April 2024; if it does not improve, will further evaluate for its cause Depression 01/25/2024 Assessment & Plan (08/09/2024 12:44 PM EDT): - PHQ9 score 16 and GAD7 score 6 on 01/26/24 - continue escitalopram 20 mg daily Assessment & Plan (03/19/2024 6:57 AM EST): - PHQ9 score 16 and GAD7 score 6 on 01/26/24 - continue escitalopram 20 mg daily KATHLEEN (generalized anxiety disorder) 01/25/2024 Assessment & Plan (08/19/2024 5:59 AM EDT): - Previously evaluated by integrated behavioral health service clinician. - Continue escitalopram 20 mg daily - Continue exercise and stress reduction Assessment & Plan (03/15/2024 10:15 AM EST): PHQ9 16, KATHLEEN 5, no hallucinations , no chris Does not know about fx psych hx Reports episodes of Anxiety ,mild panic attacks at least once a month ,states thinks her anxiety is trigger by her weight ,sometimes as well at work, denies SI ,hallucinations nor chris States taking escitalopram helps currentyl 10 mg dose.denies following w therapist -BH today eval in office and referred pt to outpt therapy -increase escitalopram to 15 mg for 1 week , if tolerates to increase to 20 mg daily -px hydroxyzine PRN Q 12 h --not taking -alarm signs and symptoms discussed w pt -advised to improve physical activity ,meditation -advised to do labs order by PCP and f w PCP in 6 weeks to monitor mood Assessment & Plan (01/25/2024 9:22 PM EST): PHQ9 16, KATHLEEN 5, no hallucinations , no chris Does not know about fx psych hx Reports episodes of Anxiety ,mild panic attacks at least once a month ,states thinks her anxiety is trigger by her weight ,sometimes as well at work, denies SI ,hallucinations nor chris States taking escitalopram helps currentyl 10 mg dose.denies following w therapist -BH today eval in office and referred pt to outpt therapy -increase escitalopram to 15 mg for 1 week , if tolerates to increase to 20 mg daily -px hydroxyzine PRN Q 12 h --not taking -alarm signs and symptoms discussed w pt -advised to improve physical activity ,meditation -advised to do labs order by PCP and f w PCP in 6 weeks to monitor mood Obesity (BMI 30-39.9) 01/25/2024 Assessment & Plan (08/19/2024 5:55 AM EDT): Patient has been seeing a dietitian for last 6 months. Continue following recommendations by egg pasteurizer. Prescribed GLP-1 RA, but insurance did not approve. Patient has already tried phentermine which worsened her anxiety and she disliked to it side effect. Will try prescribing a GLP-1 RA again. Continue working on lifestyle modification. Assessment & Plan (03/15/2024 11:03 AM EST): Patient started seeing egg pasteurizer. Continue following recommendations by egg pasteurizer. Patient would like to try a medication due to her current medications she is hesitant to try oral medication. Will prescribe injectable medication GLP1RA. Assessment & Plan (01/25/2024 9:22 PM EST): BMI 36 -Advised pt to improve diet and exercise,discussed healthy life style -discussed mobile heavy equipment mechanic referral -pt agreed -referred today -f w PCP in next 4 to 6 weeks and to consider about GLP1 then if no contraindications Abnormal uterine bleeding (AUB) 05/04/2023 Assessment & Plan (03/15/2024 11:01 AM EST): - PAP and cotest in 04/2023 were normal. - evaluated by MICROBIOLOGY MANAGER and cervical polyp removed which was benign. Assessment & Plan (05/17/2023 5:40 AM EDT): - PAP and cotest done today - evaluate with US - refer to MICROBIOLOGY MANAGER due to cervical / endometrial polyp Cervical polyp 05/04/2023 Assessment & Plan (03/15/2024 10:59 AM EST): - 05/2023 cervical polyp removed by MICROBIOLOGY MANAGER Assessment & Plan (05/17/2023 5:39 AM EDT): - polyp noticed from internal os - refer to MICROBIOLOGY MANAGER for further evaluation and management Vitamin D deficiency 06/16/2018 Assessment & Plan (08/09/2024 12:44 PM EDT): Continue vitamin D supplementation. Assessment & Plan (03/15/2024 11:01 AM EST): Continue vitamin D supplementation. Iron deficiency 06/16/2018 Assessment & Plan (03/15/2024 11:03 AM EST): Continue iron supplementation. Headache 06/07/2018 Encounters Date Type Department Care Team Description 12/26/2024 1:30 PM EST Office Visit [facility] [address] [place] [phone] Alise Tello MD Anemia, unspecified type (Primary Dx) 12/26/2024 Travel 12/25/2024 Telephone [facility] [place] [address] Beth Shah MA 11/20/2024 9:30 AM EDT Clinical Support [facility]TR[facility] [address] [place] [phone] Class 1 obesity due to excess calories with body mass index (BMI) of 31.0 to 31.9 in adult, unspecified whether serious comorbidity present (Primary Dx) 11/20/2024 Travel 11/15/2024 Refill [facility] [address] [place] [phone] Alise Tello MD 11/08/[phone] R/S Nutrition appt 11/06/[address] [phone] Alise Tello MD Appointment Request 11/03/[address] [phone] Alise Tello MD CHART PREP 10/03/2024 Orders Only [facility] [address] [place] [phone] Alise Tello MD 09/29/2024 10:00 AM EDT Clinical Support [facility] [address] [place] [phone] Obesity (BMI 30-39.9) (Primary Dx) 09/29/2024 Travel 09/25/[address] [phone] Alise Tello MD Medication Question from Last 3 Months Immunizations Immunization Administration Dates Next Due Hep B, adult 08/07/2024,03/15/2024 Tdap 03/15/2024 Social History Tobacco Use Types Packs/Day Years Used Date Smoking Tobacco: Never Smokeless Tobacco: Never Tobacco Cessation:Counseling Given: Not Answered Alcohol Use Standard Drinks/Week Comments Never 0 [...] Orientation Straight 12/22/2021 10 :34 AM EDT Last Filed Vital Signs Vital Sign Reading [...] Mass Index 30.04 12/26/2024 1:53 PM EST Plan of Treatment Health Maintenance Due Date Last Done Comments HPV Vaccines (1 - 3-dose series) 05/21/2003 Hepatitis B Vaccines (3 of 3 - 19+ 3-dose series) 10/02/2024 08/07/2024, 03/15/2024 COVID-19 Vaccine ( - 2023-2 5 season) 2024 Influenza Vaccine (#1) 2024 Alcohol/Substance Use Screening 01/24/2025 01/25/2024 Family Planning (PISQ) 03/19/2025 03/19/2024 Disability Screening 08/07/2025 08/07/2024 SDOH Screening 08/07/2025 08/07/2024 Depression Screening 12/26/2025 12/26/2024, 12/26/2024 Tobacco Screening 12/26/2025 12/26/2024 Pap Smear 05/03/2026 05/04/2023, 09/12/2021, 10/10/2019 Cervical Cancer Screening 05/03/2028 HPV/Cotest 05/03/2028 05/04/2023, 09/12/2021, 10/10/2019 Lipid Panel 05/06/2028 05/07/2023, 09/10/2021 DTaP/Tdap/Td Vaccines (2 - T d or Tdap) 03/15/2034 03/15/2024 Zoster Vaccines (1 of 2) 2038 RSV Patients and Patients Aged 60 years or older (1 - 1-dose 75+ series) 05/21/2063 HIV Screening Completed 05/07/2023 Hepatitis C Screening Completed 05/07/2023 HIB Vaccines Aged Out No longer eligi ble based on patient's age to complete this topic Hepatitis A Vaccines Aged Out No long er eligible based on patient's age to complete this topic IPV Vaccines Aged Out No longer eligi ble based on patient's age to complete this topic Meningococcal B Vaccine Aged Out No l onger eligible based on patient's age to complete this topic Meningococcal Vaccine Aged Out No rajinder george eligible based on patient's age to complete this topic Pneumococcal Vaccine: Pediatrics (0 to 5 Years) and At-Risk Patients (6 to 49) Years Aged Out No longer eligible b ased on patient's age to complete this topic RSV under 20 months Aged Out No longe r eligible based on patient's age to complete this topic Rotavirus Vaccines Aged Out No longer eligible based on patient's age to complete this topic Procedures Procedure Name Priority Date/Time Associated Diagnosis Comments VITAMIN B12/FOLATE, SERUM PANEL Routine 12/26/2024 2:34 PM EST Anemia, unspecified type RETICULOCYTE COUNT Routine 12/26/2024 2: 34 PM EST Anemia, unspecified type IRON AND TOTAL IRON BINDING CAPACITY Routine 12/26/2024 2:34 PM EST Anemia, unspecified type FERRITIN Routine 12/26/2024 2:34 PM EST Anemia, unspecified type CBC WITH AUTO DIFFERENTIAL Routine 12/26/2024 2:34 PM EST Anemia, unspecified type HEPATITIS C AB W/REFL TO HCV RNA, QN, PCR Routine 05/07/2023 10:53 AM EDT Routine general medical examination at a health care facility HIV 1/2 ANTIGEN/ANTIBODY, FOURTH GENERATION W/RFL Routine 05/07/2023 10:53 AM EDT Routine general medical examination at a health care facility LIPID PANEL WITH REFLEX TO DIRECT LDL Routine 05/07/2023 10:53 AM EDT Class 1 obesity due to excess calories without serious comorbidity with body mass index (BMI) of 32.0 to 32.9 in adult HPV MRNA E6/E7 REFLEX TO HPV 16, 18/45 Routine 05/04/2023 11:21 AM EDT Abnormal uterine bleeding (AUB) Endometrial polyp Encounter for well woman exam with routine gynecological exam PAP SMEAR Routine 05/04/2023 11:21 AM EDT Abnormal uterine bleeding (AUB) Endometrial polyp Encounter for well woman exam with routine gynecological exam from Last 3 Months or Most Recently Relevant to Health Maintenance Results * Vitamin B12 (Cobalamin) and Folate Panel, Serum (12/26/2024 2:34 PM EST) Pathologist [facility] Vitamin B12 466 200 - 900 pg/mL [facility] Comment:NORMAL 200-900 PG/ML INDETERMINATE 160-199 PG/ML DEFICIENT < 160 PG/ML Folate 7.2 > or = 4.0 ng/mL [facility] Comment:Reference Values:> o r = 4.0 ng/mL< 4.0 ng/mL suggests folate deficiency Methotrexate, aminopterin and folinic acid(leucovorin) are chemotherapeutic agents whose molecularstructures are similar to folate; therefore, the Architectfolate assay cannot be used for patients using these drugs. Blood 12/26/2024 2:34 PM EST 12/26/2024 3:55 PM EST Alise Tello MD LAB BLOOD ORDERABLES Final Resul t [facility] [address] [place] [phone] * (ABNORMAL) CBC auto differential (12/26/2024 2:34 PM EST) Pathologist [facility] White Blood Count 5.1 4.8 - 10.8 X10*3/uL [facility] Red Blood Count 4.54 4.20 - 5.50 X10*6/uL [facility] Hemoglobin 11.3(L) 12.0 - 16.0 g/dl [facility] Hematocrit 35.9(L) 37.0 - 47.0 % [facility] Mean Corpuscular Volume 79.1(L) 80.0 - 98.0 fL [facility] Mean Corpuscular Hemoglobin 24.9(L) 27.0 - 33.0 pg [facility] Mean Corpuscular HGB Conc 31.5 31.0 - 35.0 g/dl [facility] Red Cell Distribution Width 18.5(H) 11.0 - 16.0 % [facility] Platelet Count 250 160 - 400 X10*3/uL [facility] Mean Platelet Volume 11.3 9.4 - 12.3 fL [facility] Neutrophils Percent Auto 43.7(L) 45 - 73 % [facility] Imm Gran Pct Auto 0.2 0.0 - 0.4 % [facility] Lymphocytes Percent Auto 49.2(H) 20 - 40 % [facility] Monocytes Percent Auto 5.7 2 - 11 % [facility] Eosinophils Percent Auto 0.6 0 - 4 % [facility] Basophils Percent Auto 0.6 0 - 2 % [facility] NRBC Pct Auto 0.0 0.0 - 0.2 /100WBC [facility] Neutrophils Absolute Auto 2.2 2.0 - 8.3 x10*3/uL [facility] Imm Gran Abs Auto 0.01 0.00 - 0.03 X10*3/uL [facility] Lymphocytes Absolute Auto 2.5 1.2 - 4.9 X10*3/uL [facility] Monocytes Absolute Auto 0.3 0.1 - 1.2 X10*3/uL [facility] Eosinophils Absolute Auto 0.0 0.0 - 0.4 X10*3/uL [facility] Basophils Absolute Auto 0.0 0.0 - 0.2 X10*3/uL [facility] NRBC Abs Auto 0.000 0.0 - 0.012 X10*3/uL [facility] Blood Venous blood specimen / Unknown 12/26/2024 2:34 PM EST 12/26/2024 3:55 PM EST us Alise Tello MD LAB BLOOD ORDERABLES Final Resul t [facility] [address] [place] [phone] * Iron And Total Iron Binding Capacity (12/26/2024 2:34 PM EST) Iron 43 30 - 160 mcg/dL [facility] Total Iron Binding Capacity 292 228 - 428 mcg/dL [facility] Percent Iron Saturation 15 15 - 50 % [facility] Unsaturated Iron Binding 249 ug/dL [facility] Blood Venous blood specimen / Unknown 12/26/2024 2:34 PM EST 12/26/2024 3:55 PM EST Alise Tello MD LAB BLOOD ORDERABLES Final Resul t Performing Organization Address [facility] de Phone Number [facility] [address] [place] [phone] * Reticulocyte Count (12/26/2024 2:34 PM EST) Reticulocytes Absolute 0.053 0.026 - 0.095 X10*6/uL [facility] Immature Retic Fraction 8.1 3.0 - 15.9 % [facility] Retic HGB Equivalent 32.0 30.0 - 35.0 pg [facility] Reticulocyte Percent 1.2 0.5 - 1.8 % [facility] Blood Venous blood specimen / Unknown 12/26/2024 2:34 PM EST 12/26/2024 3:55 PM EST us Alise Tello MD LAB BLOOD ORDERABLES Final Resul t Performing Organization Address [facility] de Phone Number [facility] [address] [place] [phone] * (ABNORMAL) Ferritin (12/26/2024 2:34 PM EST) Ferritin 9(L) 10 - 122 ng/mL [facility] Blood Venous blood specimen / Unknown 12/26/2024 2:34 PM EST 12/26/2024 3:55 PM EST Alise Tello MD LAB BLOOD ORDERABLES Final Resul t Performing Organization Address City/[facility] Co de Phone Number [facility] [address] [place] [address] [phone] * (ABNORMAL) Lipid Panel with Reflex to Direct LDL (05/07/2023 10:53 AM EDT) Triglycerides 93 <150 mg/dL [facility] Comment:Desirable Triglyceri de: less than 150 mg/dLBorderline High Triglyceride 150-199 mg/dLHigh Triglyceride: 200-499 mg/dLVery High Triglyceride: greater than or equal to 5OO mg/dL Cholesterol 204(H) <200 mg/dL [facility] Comment:Desirable Cholestero l: less than 200 mg/dLBorderline High Cholesterol: 200-239 mg/dLHigh Cholesterol: greater than 239 mg/dL LDL Cholesterol Calculated 133(H) <100 mg/dL [facility] Comment:Desirable LDL: less than 100 mg/dLNear Optimal/Above Optimal LDL: 110- 129 mg/dLBorderline High LDL: 130-159 mg/dLHigh LDL: 160-189 mg/dLVery High LDL: greater than or equal to 190 mg/dL HDL Cholesterol 53 >40 mg/dL [facility] Comment:Desirable HDL: great er than 40 mg/dL Note: This HDL assay may give artificially low results in patients with liver disease. Blood 05/07/2023 10:5 3 AM EDT 05/07/2023 1:46 PM EDT us Alise Tello MD LAB BLOOD ORDERABLES Final Resul t [facility] [address] [place] [phone] [phone] * Hepatitis C Antibody with Reflex to HCV, RNA, Quantitative, Real-Time PCR (05/07/2023 10:53 AM EDT) Hepatitis C Antibody Nonreactive Nonreactive [facility] Comment:Antibodies to HCV no t detected; does not exclude early acuteHCV infection. Blood Venous blood specimen / Unknown 05/07/2023 10:53 AM EDT 05/07/2023 11:30 AM EDT us Alise Tello MD LAB BLOOD ORDERABLES Final Resul t Performing Organization Address City/[facility]/ZIP Co de Phone Number [facility] [address] [place] [phone] * HIV-1/2 Antigen and Antibodies, Fourth Generation, with Reflexes (05/07/2023 10:53 AM EDT) Pathologist [facility] HIV AB/AG Nonreactive Nonreactive [facility] Comment:HIV-1 p24 Ag and/or HIV-1/HIV-2 Ab not detected.A test result that is nonreactive does not exclude thepossibility of exposure to or infection with HIV-1 and/orHIV-2. Nonreactive results in this assay for individualswith prior exposure to HIV-1 and/or HIV-2 may be due toantigen and antibody levels that are below the limit ofdetection of this assay.The [employer] HIV Ag/Ab Combo assay result andsupplemental assay results should be interpreted inconjunction with the patient's clinical presentation,history and other laboratory results. If the results areinconsistent with clinical evidence, additional testing issuggested to confirm the result. Blood Venous blood specimen / Unknown 05/07/2023 10:53 AM EDT 05/07/2023 11:30 AM EDT us Alise Tello MD LAB BLOOD ORDERABLES Final Resul t Performing Organization Address City/[facility]/ZIP Co de Phone Number [facility] [address] [place] [phone] * HPV mRNA E6/E7 w/Reflex to HPV Genotypes 16, 18/45 (05/04/2023 11:21 AM EDT) Pathologist [facility] HPV nRNA E6/E7 Not Detected Not Detected [facility] Comment:Methodology: Transcr iption-Mediated AmplificationThis assay detects E6/E7 viral messenger RNA (mRNA) from 14high-risk HPV types (16,18,31,33,35,39,45,51,52,56,58,59,66,68).Cervical sources are required for HPV testing.If a vaginal source from a patient who has had atotal hysterectomy with removal of cervix wassubmitted, please contact the testing laboratoryfor alternative testing options.For additional information, please refer [email or web address].[employer]/faq/RRZ434o5(This link if provided for information/educational purposes only.)THIS TEST WAS PERFORMED AT:[facility] [place] [phone] MIGUEL ORO MD HPV mRNA E6/E7 TNP [facility] HPV 16 RNA [facility] HPV 18/45 RNA [facility] Vaginal Fluid Cervix uteri structure / Unknown 05/04/2023 11:21 AM EDT 05/05/2023 2:22 PM EDT [facility] - 05/07/2023 7:38 AM EDT Collection Date: [id number] by: SHELLY Hoyos: Cervix us Alise Tello MD LAB CYTOLOGY ORDERABLES Final Re sult [facility] [address] [place] [address] [phone] * Pap Smear (05/04/2023 11:21 AM EDT) Swab 05/04/2023 11:2 1 AM EDT 05/05/2023 12:25 PM EDT [facility] - 05/11/2023 9:33 AM EDT ----- ------- Name: Immanuel Murcia Age/Sex: 32/F : 1990 Unit#: [id number] Attend Dr: Alise Tello MD Re05/04/23 Status: DEP [facility] Disch: ----- ------- SPEC : [id number] RECD: 05/05/23-1225 STATUS: ML ALVA NUM: [id number] PENNY: 05/04/23-1120 [facility] DR: Alise Tello MD ENTERED: 05/05/23-125 SP TYPE: Pap Smr OTHR DR: ORDERED: Pap Smear Interpretation Satisfactory for evaluation. Negative for intraepithelial lesion or malignancy. HPV mRNA E6/E7: NOT DETECTED This assay detects E6/E7 viral messenger RNA (mRNA) from 14 high-risk HPV types (16, 18, 31, 33, 35, 39, 45, 51, 52, 56, 58, 59, 66, 68) HPV testing performed by [facility], [place], [place]. See reference laboratory portion of the EMR for entire report. Clinical Information LMP: Unknown date Previous PAP test: Unknown date/findings Other history: Abnormal uterine bleeding, endometrial polyp Material Received ThinPrep-Vaginal/Cervical ----- ------- Signed (signature on file) THELMA Harris (ASCP) 05/11/23 0933 ----- ------- END OF REPORT Alise Tello MD LAB CYTOLOGY ORDERABLES Final Re sult [facility] Organization Address City/State/ZIP Co de Phone Number [facility] [address] [place] [phone] from Last 3 Months or Most Recently Relevant to Health Maintenance Insurance [employer] C3 Care Teams Powder Carrier Relationship Specialty Start Date End Date Alise Tello MD [address] [place] [phone] PCP - General Family Medicine 05/04/23
--- OUTSIDE RECORDS SUMMARY | 2024-12-26 17:28 | XMS_ITS | Encounter Summary ---
Author Organization [employer] Address [address] [facility] 7 [place] [address] Care Team Providers Care Oim Consultant Name Role Phone Alise Tello MD Primary Care Provider [phone] Encounter Details Date Type Department Care Team (Late st Contact Info) Description 07/28/2023 Orders Only [facility] [address] [place], [place] [phone] Alise Tello MD [address] [place], [place] [phone] Vitamin D deficiency (Primary Dx); Iron deficiency [...] Vitamin D 25-OH Total 13.6(L) >30 ng/mL [facility] Comment:Health Based Referen ce Values*< 20 ng/mL [id number] ng/mL Insufficient> 30 ng/mL Sufficient*Castillo MONTES. N [...] ORDERABLES Final Resul t Performing Organization Address [facility]/ZIP Co de Phone Number [facility] [address] [place] [phone] * Vitamin B12/Folate, Serum Panel (01/25/2024 12:45 PM EST) Vitamin B12 546 200 - 900 pg/mL [facility] Comment:NORMAL 200-900 PG/ML INDETERMINATE 160-199 PG/ML DEFICIENT < 160 PG/ML Folate 13.7 > or = 4.0 ng/mL [facility] Comment:Reference Values:> o r = 4.0 ng/mL< 4.0 ng/mL suggests folate deficiency Methotrexate, aminopterin and folinic acid(leucovorin) are chemotherapeutic agents whose molecularstructures are similar to folate; therefore, the Architectfolate assay cannot be used for patients using these drugs. 01/25/2024 12:4 5 PM EST 01/25/2024 1:41 PM EST Alise Tello MD LAB BLOOD ORDERABLES Final Resul t Performing Organization Address [facility]/ZIP Co de Phone Number [facility] [address] [place] [address] [phone] * (ABNORMAL) Iron And Total Iron Binding Capacity (01/25/2024 12:45 PM EST) Iron 40 30 - 160 mcg/dL [facility] Total Iron Binding Capacity 361 228 - 428 mcg/dL [facility] Percent Iron Saturation 11(L) 15 - 50 % [facility] Unsaturated Iron Binding 321 ug/dL [facility] Blood Venous blood specimen / Unknown 01/25/2024 12:45 PM EST 01/25/2024 1:41 PM EST Alise Tello MD LAB BLOOD ORDERABLES Final Resul t Performing Organization Address [facility] Co de Phone Number [facility] [address] [place] [address] [phone] * (ABNORMAL) Ferritin (01/25/2024 12:45 PM EST) Pathologist [facility] Ferritin 7(L) 10 - 122 ng/mL [facility] Blood Venous blood specimen / Unknown 01/25/2024 12:45 PM EST 01/25/2024 1:41 PM EST Alise Tello MD LAB BLOOD ORDERABLES Final Resul t Performing Organization Address [facility] de Phone Number [facility] [address] [place] [phone] * (ABNORMAL) CBC auto differential (01/25/2024 12:45 PM EST) White Blood Count 4.7(L) 4.8 - 10.8 X10*3/uL [facility] Red Blood Count 4.27 4.20 - 5.50 X10*6/uL [facility] Hemoglobin 10.0(L) 12.0 - 16.0 g/dl [facility] Hematocrit 32.3(L) 37.0 - 47.0 % [facility] Mean Corpuscular Volume 75.6(L) 80.0 - 98.0 fL [facility] Mean Corpuscular Hemoglobin 23.4(L) 27.0 - 33.0 pg [facility] Mean Corpuscular HGB Conc 31.0 31.0 - 35.0 g/dl [facility] Red Cell Distribution Width 18.4(H) 11.0 - 16.0 % [facility] Platelet Count 292 160 - 400 X10*3/uL [facility] Mean Platelet Volume 10.6 9.4 - 12.3 fL [facility] Neutrophils Percent Auto 51.2 45 - 73 % [facility] Imm Gran Pct Auto 0.2 0.0 - 0.4 % [facility] Lymphocytes Percent Auto 41.0(H) 20 - 40 % [facility] Monocytes Percent Auto 5.9 2 - 11 % [facility] Eosinophils Percent Auto 1.1 0 - 4 % [facility] Basophils Percent Auto 0.6 0 - 2 % [facility] NRBC Pct Auto 0.0 0.0 - 0.2 /100WBC [facility] Neutrophils Absolute Auto 2.4 2.0 - 8.3 x10*3/uL [facility] Imm Gran Abs Auto 0.01 0.00 - 0.03 X10*3/uL [facility] Lymphocytes Absolute Auto 1.9 1.2 - 4.9 X10*3/uL [facility] Monocytes Absolute Auto 0.3 0.1 - 1.2 X10*3/uL [facility] Eosinophils Absolute Auto 0.1 0.0 - 0.4 X10*3/uL [facility] Basophils Absolute Auto 0.0 0.0 - 0.2 X10*3/uL [facility] NRBC Abs Auto 0.000 0.0 - 0.012 X10*3/uL [facility] Blood Venous blood specimen / Unknown 01/25/2024 12:45 PM EST 01/25/2024 1:41 PM EST us Alise Tello MD LAB BLOOD ORDERABLES Final Resul t [facility] [address] [place] [phone] documented in this encounter Visit Diagnoses Diagnosis Vitamin D deficiency- Primary Iron deficiency anemia, unspecified iron deficiency anemia type documented in this encounter Additional Health Concerns Assessment Noted Time PHQ-9 Depression Total Score: 0 05/04/19 24 10:09 AM EDT documented as of this encounter Care Teams Oim Consultant Relationship Specialty Start Date End Date Alise Tello MD [address] [place] [address] PCP - General Family Medicine 05/04/23 documented as of this encounter
--- OUTSIDE RECORDS SUMMARY | 2024-12-26 17:28 | XMS_ITS | Encounter Summary ---
Author Organization [employer] Address [address] [facility] 7t [place] [address] Care Team Providers Care Saturator Operator Name Role Phone Alise Tello MD Primary Care Provider [phone] Encounter Details Date Type Department Care Team (Late st Contact Info) Description 12/25/2024 Telephone [facility] [address] [place] [address] Beth Shah MA Social History Tobacco Use Types Packs/Day Years [...] encounter Miscellaneous Notes * Telephone Encounter - Beth Shah MA - 12/25/2024 12:59 PM EST Chart Prep Labs: done Images: not applicable Referrals: not applicable Vaccines due: Covid, Flu, Hep B, and HPV Screenings: not applicable Overdue care gaps: PHQ-9 documented in this encounter Plan of Treatment Not on file documented as of this encounter Visit Diagnoses Not on filedocumented in this encounter Additional Health Concerns Assessment Noted Time PHQ-9 Depression Total Score: 16 024 9:00 AM EST documented as of this encounter Care Teams Saturator Operator Relationship Specialty Start Date End Date Alise Tello MD [address] [place] [address] PCP - General Family Medicine 05/04/23 documented as of this encounter
--- OUTSIDE RECORDS SUMMARY | 2024-12-26 17:28 | XMS_ITS | Encounter Summary ---
Author Organization [employer] Address [address] [place] [address] 7 [place] [address] Care Team Providers Care Sign Painter Helper Name Role Phone Alise Tello MD Primary Care Provider [phone] Reason for Visit * Reason Onset Date Comments Med Refill 06/30/2024 Encounter Details Date Type Department Care Team ([facility] st Contact Info) Description 06/30/2024 Telephone [facility] [address] [place], [place] [phone] Alise Tello MD [address] [place] [address] Med Refill Social History Tobacco Use Types Packs/Day Years [...] encounter Miscellaneous Notes * Telephone Encounter - Samina Kumar LPN - 06/30/2024 12:06 PM EDT Medication was sent to [facility] #[id number] on 05/05/24 #90. * Telephone Encounter - Katerine Valencia - 06/30/2024 11:57 AM EDT TC from pt requesting medication refill. Medications needing refill : escitalopram (Lexapro) 20 MG tablet To be sent to: [id number] - [place], [place] - [address] [place] [address] [address] [facility] [address] documented in this encounter Plan of Treatment Not on file documented as of this encounter Visit Diagnoses Not on filedocumented in this encounter Additional Health Concerns Assessment Noted Time PHQ-9 Depression Total Score: 16 024 9:00 AM EST documented as of this encounter Care Teams Sign Painter Helper Relationship Specialty Start Date End Date Alise Tello MD [address] [place] [address] PCP - General Family Medicine 05/04/23 documented as of this encounter
--- OUTSIDE RECORDS SUMMARY | 2024-12-26 17:28 | XMS_ITS | Encounter Summary ---
Author Organization [employer] Address [address] [facility] 7 [place] [address] Care Team Providers Care Telephone Station Installer Name Role Phone Alise Tello MD Primary Care Provider [phone] Encounter Details Date Type Department Care Team ([facility] st Contact Info) Description 07/06/2024 Telephone [facility] [address] [place], [place] [phone] Alise Tello MD [address] [place], [place] [phone] Social History Tobacco Use Types Packs/Day Years Used Date Smoking Tobacco: Never Smokeless Tobacco: Never Depression Answer Date Recorded Patient Health Questionnaire-9 Score 16 01/26/2024 Patient Health Questionnaire-9 Score 16 01/26/2024 Last PHQ-9: Questionnaire Data Not on file 1 03/28/2023 Housing Stability Answer Date Recorded What is your housing situation today? I have memealysha murphy 12/21/[address] you [...] encounter Miscellaneous Notes * Telephone Encounter - Arya Maynard - 07/06/2024 10:05 AM EDT Tc from pt wanting to reschedule missed visit with Vanessa documented in this encounter Plan of Treatment Not on file documented as of this encounter Visit Diagnoses Not on filedocumented in this encounter Additional Health Concerns Assessment Noted Time PHQ-9 Depression Total Score: 16 024 9:00 AM EST documented as of this encounter Care Teams Telephone Station Installer Relationship Specialty Start Date End Date Alise Tello MD [address] [place] [address] PCP - General Family Medicine 05/04/23 documented as of this encounter
--- OUTSIDE RECORDS SUMMARY | 2024-12-26 17:28 | XMS_ITS | Encounter Summary ---
Author Organization [employer] Address [address] [facility] 7 [place] [address] Care Team Providers Care Transition Social Worker Name Role Phone Alise Tello MD Primary Care Provider [phone] Encounter Details Date Type Department Care Team ([facility] st Contact Info) Description 04/13/2024 Orders Only [facility] [address] [place], [place] [phone] Alise Tello MD [address] [place], [place] [phone] Social History Tobacco Use Types Packs/Day Years [...] documented as of this encounter Care Teams Transition Social Worker Relationship Specialty Start Date End Date Alise Tello MD [address] [place] [phone] PCP - General Family Medicine 05/04/23 documented as of this encounter
== END 2024-12-26 14:26 | disposition home or self-care (01) ==
LOC: HO.HHCL 14:25
PROVIDERS: PCP Family Medicine; Visit Provider Family Medicine
DX: D64.9 Anemia, unspecified (principal)
CPT/HCPCS: 36415; 82607; 82728; 82746; 83540; 85025; 85045